=== PATIENT | female | born 1950 | race Caucasian/White ===

== ENCOUNTER 2016-07-16 08:57 | Day surgery (SDC) | payer MEDICARE, OTHER ==
[~2016-07-16] VITALS: Ht 154.9 cm; Wt 58.5 kg
[~2016-07-16 08:57] MED LIST: ASPI-973 PO; VIT D2 PO
[2016-07-16 09:25] VITALS: BP 152/73; PULSE 88; RESP 14; O2SAT 98
[2016-07-16] MEDS ORDERED: fentaNYL-PF 50 mCg/mL 2 mL Inj ONE (09:45)
[2016-07-16] MEDS ORDERED: 0.9% Sodium Chloride 1,000 ML IV PRN (10:07)
[2016-07-16] MEDS ORDERED: Sodium Chloride LOK Flush 10 mL Syringe IV PRN (10:10)
[2016-07-16] MEDS ORDERED: fentaNYL-PF 50 mCg/mL 2 mL Inj IVPUSH PRN (10:10)
[2016-07-16 10:37] VITALS: BP 130/70; PULSE 80; RESP 14; O2SAT 98
[2016-07-16 10:50] VITALS: BP 121/69; PULSE 76; RESP 14; O2SAT 100
[2016-07-16 11:00] VITALS: BP 135/62; PULSE 86; RESP 16; O2SAT 100
--- NOTE | 2016-07-16 23:15 | ENDO ---
[address] [address] ENDOSCOPY PROCEDURE PATIENT: MYNOR SNYDER : 1950 MR#: [id number] ADMIT: 07/16/2016 JOB ID: [id number] PROCEDURE: Colonoscopy. INDICATION: Personal history of colon cancer that was diagnosed in 2008. Her last colonoscopy was in 2013 and at that time had hyperplastic polyps. She has been brought back today for surveillance. ANESTHESIA CLASSIFICATION: Patient's ASA classification is II. Mallampati score is II. MEDICATIONS: 1. Versed at 4 mg. 2. Fentanyl 75 mcg. INSTRUMENT USED: PCF-H180 AL PREPARATION: Prep quality was good. PROCEDURE DETAILS: After informed consent was obtained, the patient was brought to the GI suite, where she was placed on oxygen via nasal cannula and monitored with continuous pulse oximeter, telemetry, and blood pressure monitoring. A time-out was performed, and she was placed in the left lateral decubitus position and medications were administered for sedation. Digital rectal exam was performed, which was unremarkable. The colonoscope was then inserted into the rectum and advanced under direct visualization to the cecum, which was identified by the presence of the ileocecal valve and appendiceal orifice. Once the cecum was reached, the colonoscope was withdrawn back into the rectum as the mucosa and lumen were examined. In the rectum, retroflexion was performed. Following retroflexion, remaining air in the rectum was suctioned, and procedure was completed. FINDINGS: 1. In the ascending colon, there was an approximately 5-6 mm sessile polyp that was removed with a hot snare. 2. In the transverse colon, there was a diminutive polyp that was removed with cold biopsy forceps. 3. A few scattered diverticula were seen on the left side of the colon. 4. At approximately 12 cm, there was evidence of an anastomosis. The anastomosis appeared to be rectocolonic anastomosis. This was evidenced by scar tissue there present as well as a suture remaining. IMPRESSION: 1. Rectocolonic anastomosis. 2. Left-sided diverticulosis. 3. Ascending colon polyp. 4. Transverse polyp. RECOMMENDATIONS: 1. Avoid NSAIDs and anticoagulants for 72 hours. 2. Fiber-rich diet. 3. Repeat colonoscopy in three years. COMPLICATIONS: None. ESTIMATED BLOOD LOSS: Less than 5 mL
--- NOTE | 2016-07-20 14:47 | PATH ---
SURGICAL PATHOLOGY Attending Physician:Tony Montes De Oca CASE STATUS: Signed Out PATIENT NAME: MYNOR SNYDER PID: [id number] : 1950 DATE COLLECTED:07/16/2016 17:35 SPECIMEN: 1: Colon, Biopsy 2: Colon, Biopsy CLINICAL HISTORY: 1). ASCENDING POLYP X1 2). TRANSVERSE POLYP X1 FINAL DIAGNOSIS: 1.ASCENDING COLON POLYP: SESSILE SERRATED ADENOMA. 2.TRANSVERSE COLON POLYP: HYPERPLASTIC POLYP. ICD10 CODE D12.6 GROSS DESCRIPTION: The specimen is received in two formalin filled containers labeled with the patient's name. 1). The specimen is sublabeled "ascending polyp x1" and consists of a 0.5 x 0.4 x 0.4 CM portion of tissue. The specimen is entirely submitted in cassette 1A. 2). The specimen is sublabeled "transverse polyp x1" and consists of 2 portions of tissue which aggregate to 0.3 x 0.3 x 0.2 CM. The specimen is entirely submitted in cassette 2A. 07/16/2016 [facility] MICRO DESCRIPTION: See diagnosis. ICD-9 CODES: CPT CODES: 1: 53007 2: 54507 Electronically Signed Out Benedicto Beltran MD [facility] Pathology [facility] [address], [place] [address] Technical component performed at [facility], [address] [place] [address] Ave[address], [place], [address]
== END 2016-07-16 23:59 | disposition home or self-care (01) ==
LOC: END 08:57
PROVIDERS: ATTEND Internal Medicine Gastroenterology
DX: Z12.11 Encounter for screening for malignant neoplasm of colon (principal); D12.2 Benign neoplasm of ascending colon; K63.5 Polyp of colon; K57.30 Diverticulosis of large intestine without perforation or abscess without bleeding; K63.89 Other specified diseases of intestine; Z85.038 Personal history of other malignant neoplasm of large intestine; E78.5 Hyperlipidemia, unspecified; M85.80 Other specified disorders of bone density and structure, unspecified site; E55.9 Vitamin D deficiency, unspecified; Z92.21 Personal history of antineoplastic chemotherapy; Z79.82 Long term (current) use of aspirin
CPT/HCPCS: 45380; 45385; G0500; J2250; J3010; J7030